=== PATIENT | female | born 1985 | race American Indian/Alaskan Native ===

== ENCOUNTER 2017-10-29 08:08 | Day surgery (SDC) | payer MEDICAID ==
[2017-10-29] MEDS ORDERED: NACL 0.9% 1000 ML 1,000 ML IV SCH (10:00)
--- NOTE | 2017-10-29 10:16 | Anesthesia Consultation ---
Anesthesia Consult and Med Hx Date of service: 10/29/17 - Airway Anesthetic Teeth Evaluation: Good ROM Head & Neck: Adequate Mental/Hyoid Distance: Adequate Mallampati Class: Class II Intubation Access Assessment: Probably Good - Pulmonary Exam CTA: Yes - Cardiac Exam Cardiac Exam: RRR - Pre-Operative Health Status ASA Pre-Surgery Classification: ASA3 Proposed Anesthetic Plan: MAC - Pulmonary Hx Asthma: Yes Hx Sleep Apnea: Yes - Central Nervous System Hx Psychiatric Problems: Yes (deression/anxiety/adhd) - Other Systems Hx Obesity: Yes
--- NOTE | 2017-10-29 10:16 | Anesthesia Day of Surgery ---
Anesthesia Day of Surgery - Day of Surgery Patient Examined: Yes Patient H&P Reviewed: Yes Patient is NPO: Yes
[2017-10-29] MEDS ORDERED: DIPRIVAN 10 MG/ML IV ONE ×2 (10:24)
[2017-10-29 14:25] VITALS: BP 138/81
--- NOTE | 2017-10-29 15:04 | Operative Report ---
SURGEONS: Chi Treviño MD and ____ PREOPERATIVE DIAGNOSES: Dyspepsia, nausea, status post lap band placement. POSTOPERATIVE DIAGNOSES: ____Malpositioned band, dyspepsia, nausea, status post lap band placement. OPERATION: Esophagogastroduodenoscopy. ANESTHESIA: MAC. COMPLICATIONS: None. SPECIMENS: None. BLEEDING: None. INDICATIONS: The patient is a 32-year-old female who had a lap band placed in 2009. She has since developed dyspepsia and persistent nausea. She had an upper GI performed elsewhere that demonstrated a slipped band on barium swallow. She presents today for a planned upper endoscopy to evaluate further. The risks, complications and alternatives were explained to the patient. Informed consent was obtained. DESCRIPTION OF PROCEDURE: The patient was brought to the operating room where she was placed in the left lateral decubitus position and underwent anesthesia. Bite block was placed. A standard adult gastroscope was inserted into the oropharynx, down the esophagus, into the stomach. On retroflexion view, the band was seen to be in proper position. There were no erosions, ulcers, or lesions noted, it was normal up to the portion of D1. The area was then desufflated. The gastroscope was removed. The patient tolerated the procedure well and was transferred back in stable condition. JOB# [id number] NATHALY/DAPHNE
== END 2017-10-29 11:18 | disposition home or self-care (01) ==
LOC: GIO 08:08
PROVIDERS: ATTEND Specialist
DX: K30 Functional dyspepsia (principal); R11.0 Nausea; F41.9 Anxiety disorder, unspecified; G47.30 Sleep apnea, unspecified; J45.909 Unspecified asthma, uncomplicated; E66.9 Obesity, unspecified; Z68.42 Body mass index [BMI] 45.0-49.9, adult; Z98.890 Other specified postprocedural states
CPT/HCPCS: 43235; 81025; J2704; J7030

== ENCOUNTER 2018-05-01 11:00 | Outpatient (CLI) | payer MEDICAID | END 2018-05-01 11:01 | disposition home or self-care (01) | LOC: SLR 11:00 | PROVIDERS: ATTEND Otolaryngology | DX: G47.33 Obstructive sleep apnea (adult) (pediatric) (principal); R40.0 Somnolence; R06.83 Snoring; J45.909 Unspecified asthma, uncomplicated; E66.9 Obesity, unspecified | CPT/HCPCS: 95810 ==

== ENCOUNTER 2018-05-14 11:00 | Outpatient (CLI) | payer MEDICAID | END 2018-05-14 11:01 | disposition home or self-care (01) | LOC: SLR 11:00 | PROVIDERS: ATTEND Otolaryngology | DX: G47.33 Obstructive sleep apnea (adult) (pediatric) (principal); R40.0 Somnolence; R06.83 Snoring; J45.909 Unspecified asthma, uncomplicated; E66.9 Obesity, unspecified | CPT/HCPCS: 95811 ==

== ENCOUNTER 2020-05-02 11:00 | Outpatient (CLI) | payer MEDICAID | END 2020-05-02 11:01 | disposition home or self-care (01) | LOC: SLR 11:00 | PROVIDERS: ATTEND Otolaryngology | DX: G47.30 Sleep apnea, unspecified (principal) | CPT/HCPCS: 95810 ==

== ENCOUNTER 2020-05-24 14:11 | Outpatient (CLI) | payer MEDICAID | END 2020-05-24 14:12 | disposition home or self-care (01) | LOC: SLR 14:11 | PROVIDERS: ATTEND Surgery | DX: G47.33 Obstructive sleep apnea (adult) (pediatric) (principal) | CPT/HCPCS: 95811 ==

== ENCOUNTER 2020-06-23 08:05 | Outpatient (CLI) | payer MEDICAID ==
--- NOTE | 2020-06-23 10:56 | Electrocardiograph Report ---
[facility] Test Date: 2020-06-23 Test Time: 09:15:43 Pat Name: BONIFACIO LLOYD Department: Room: Gender: F Dye Range Tender: PREM : 1985 Requested By: ROBIN MALDONADO Order Number: [id number] Reading MD: Lexi Ansari Measurements Intervals [place] Rate: 89 P: 44 CA: 154 QRS: 43 QRSD: 79 T: 8 QT: 363 QTc: 443 Interpretive Statements Sinus rhythm No previous ECG available for comparison Electronically Signed On 06-23-2020 10:55:47 EDT by Lexi Ansari
--- NOTE | 2020-06-24 03:01 | Treadmill Report ---
DATE OF SERVICE: 06/23/2020 DATE OF PROCEDURE: 06/23/2000 PROCEDURE: This is for a regular treadmill. Baseline heart rate was 67, sinus rhythm with frequent PVCs. Baseline blood pressure is 141/80. The patient exercised on Robert protocol for 6 minutes, achieved a heart rate of 162, which is 90% of max predicted heart rate. Peak blood pressure was 161/50. The patient had no EKG changes or arrhythmias with stress or recovery. SUMMARY: 1. Negative treadmill EKG. 2. Fair exercise capacity of 6 minutes Robert protocol. 3. There were no EKG changes or arrhythmias to suggest ischemia. 4. There was no exaggerated blood pressure response to activity. The patient achieved 7.2 METs. TID: [id number] RECEIPT: [id number] GLADYS/RODOLFO
== END 2020-06-23 08:06 | disposition home or self-care (01) ==
LOC: CARD 08:05
PROVIDERS: ATTEND Surgery
DX: Z01.818 Encounter for other preprocedural examination (principal); E66.01 Morbid (severe) obesity due to excess calories
CPT/HCPCS: 93005; 93017

== ENCOUNTER 2020-08-09 07:10 | Day surgery (SDC) | payer MEDICAID ==
[2020-08-09] MEDS ORDERED: SODIUM CHLORIDE 0.9% 1000 ML 1,000 ML IV SCH (08:00)
--- NOTE | 2020-08-09 08:38 | Anesthesia Consultation ---
Anesthesia Consult and Med Hx Date of service: 08/09/20 - Airway Anesthetic Teeth Evaluation: Good ROM Head & Neck: Adequate Mental/Hyoid Distance: Adequate Mallampati Class: Class III Intubation Access Assessment: Possibly Difficult - Pulmonary Exam CTA: Yes - Pre-Operative Health Status ASA Pre-Surgery Classification: ASA3 Proposed Anesthetic Plan: MAC - Pulmonary Hx Asthma: Yes (Last attack- 6 months ago) Hx Respiratory Symptoms: No SOB: No Hx Sleep Apnea: Yes - Cardiovascular System Hx Hypertension: No Hx Heart Attack/AMI: No Hx Angina: No - Central Nervous System Hx Seizures: No Hx Psychiatric Problems: Yes (deression/anxiety/adhd) - Gastrointestinal Hx Gastroesophageal Reflux Disease: No - Endocrine Hx Renal Disease: No Hx Liver Disease: No Hx Insulin Dependent Diabetes: No Hx Non-Insulin Dependent Diabetes: No Hx Thyroid Disease: No - Hematic Hx Sickle Cell Disease: No - Other Systems Hx Alcohol Use: Yes (Sparingly) Hx Obesity: Yes (BMI- 53.3kg)
--- NOTE | 2020-08-09 08:41 | Operative Report ---
Operative Report Operative Report: DATE: 08/09/2020 SURGERY: Upper endoscopy. SURGEON: Angel Deutsch M.D. PROCEDURE: EGD with biopsy PRE OP DX: morbid obesity, GERD, hx of gastric banding POST OP DX: morbid obesity, GERD, hx of gastric banding TYPE OF ANESTHESIA: MAC. ESTIMATED BLOOD LOSS: None. COMPLICATIONS: None. SPECIMENS REMOVED: antral biopsy FINDINGS: 1. Normal banded gastric anatomy, antral gastriti INDICATIONS:INDICATION FOR PROCEDURE: Patient is a 35-year-old female with a long history of morbid obesity. He has a hx of gastric banding and increased reflux. He is having EGD to evaluate his stomach anatomy prior to planning switching to another bariatric procedure. PROCEDURE DETAILS: After consent was reviewed, patient was taken back to the operating room where patient was placed in the left lateral decubitus position and a bite block was placed in the mouth. After a time-out was called, MAC anesthesia was initiated. I then passed the endoscope into his oropharynx, into her esophagus, visualized the entire esophagus, which was all within normal limits with the exception of mild gastritis. Z-line was noted to about 40 cm from incisors. There was an expected proximal stomach narrowing from external compression from the gastric band. I then visualized the stomach and the first portion of the duodenum and there were no abnormalities I could clearly visualize. A cold forceps biopsy of the antrum was taken and will be sent to pathology to evaluate for H.pylori. I then retroflexed the scope in the stomach and visualized the underside of the band. There were no signs of band erosion or malposition. I then desufflated the stomach and removed the endoscope. Patient tolerated procedure well and was transferred to recovery room in good and stable condition.
--- NOTE | 2020-08-09 08:43 | Anesthesia Day of Surgery ---
Anesthesia Day of Surgery - Day of Surgery Patient Examined: Yes Patient H&P Reviewed: Yes Patient is NPO: Yes Beta Blockers: No Cardiac Clearance: No Pulmonary Clearance: No George's Test: N/A
--- NOTE | 2020-08-09 08:43 | Discharge Summary ---
Providers - Providers Date of Admission: 08/09/2020 Date of discharge: 08/09/20 Attending physician: ROBIN MALDONADO MD Primary care physician: DANIELLE GONZALEZ Hospitalization Reason for admission: EGD Condition: Good Procedures: EGD with biopsy Hospital course: Pt presented for a pre-op EGD as part of planning for up coming bariatric surgery. Procedure was uneventful and pt recovered well and was discharged to home. Disposition: DC-01 TO HOME OR SELFCARE Final Discharge Diagnosis (Prints w/discharge instructions): GERD, morbid obesity, hx of gastric biopsy Core Measure Documentation - Palliative Care Palliative Care/ Comfort Measures: Not Applicable - Core Measures Any of the following diagnoses?: none Exam - Physical Exam Narrative exam: unchanged from pre-op Plan Activity: advance as tolerated Diet: low carbohydrate Follow up with: DANIELLE GONZALEZ MD [Primary Care Provider] - 7 Days
[2020-08-09] MEDS ORDERED: propofoL 200 MG/20 ML VIAL IV ONE ×2 (09:05)
[2020-08-09] MEDS ORDERED: LIDOCAINE MPF (2%) 20 MG/1 ML VIAL 5 ML ONE (09:30)
[2020-08-09 10:53] VITALS: BP 118/69
--- NOTE | 2020-08-09 19:30 | Post Anesthesia Evaluation ---
- Post Anesthesia Evaluation Patient Participated: Yes Airway Patent: Yes Stable Respiratory Function: Yes Nausea/Vomiting: No Temp > 96.8F: Yes Pain Manageable: Yes Adequeate Hydration: Yes Anesthesia Complications: No Block Receding Appropriately: Not Applicable Patient on Ventilator: No
== END 2020-08-09 07:11 | disposition home or self-care (01) ==
LOC: GIO 07:10
PROVIDERS: ATTEND Surgery
DX: K21.9 Gastro-esophageal reflux disease without esophagitis (principal); E66.01 Morbid (severe) obesity due to excess calories; K29.70 Gastritis, unspecified, without bleeding; J45.909 Unspecified asthma, uncomplicated; G47.30 Sleep apnea, unspecified; F41.9 Anxiety disorder, unspecified; F32.9 Major depressive disorder, single episode, unspecified; Z72.89 Other problems related to lifestyle; Z98.890 Other specified postprocedural states; Z79.899 Other long term (current) drug therapy; Z68.43 Body mass index [BMI] 50.0-59.9, adult
CPT/HCPCS: 43239; 88305; 88342; J2704; J7030

== ENCOUNTER 2020-08-15 08:04 | Outpatient (CLI) | payer MEDICAID ==
--- NOTE | 2020-08-15 09:21 | Fluoroscopy Report ---
BARIUM SWALLOW Indication: FUNCTIONALDYSPEPSIA. Technique: Single and double contrast barium technique utilized to evaluate the esophagus. FINDINGS: To begin the exam, swallowing was evaluated in the lateral position under direct fluorosco py. Swallowing was normal. No mucosal irregularity, mass, mass effect, or critical stenosis. There were no abnormal tertiary c ontractions as seen with dysmotility. No gastroesophageal reflux. A lap band device is identified in the left upper quadrant which appears in good position. No evidence for slippage or erosion. IMPRESSION: Unremarkable exam. Fluoroscopic time: 0.7 minutes Number of fluoroscopic images: 38 Signer Name: Nirmal Bentley Jr, MD Signed: 08/15/2020 9:17 AM Workstation Name: [id number]
== END 2020-08-15 08:05 | disposition home or self-care (01) ==
LOC: FLUORO 08:04
PROVIDERS: ATTEND Surgery
DX: K30 Functional dyspepsia (principal)
CPT/HCPCS: 74220

== ENCOUNTER 2021-03-14 15:57 | Outpatient (CLI) | payer MEDICAID ==
[2021-03-14 16:16] LABS: Basophils # (Auto) 0.1 K/mm3 (0.0-0.1); Basophils % (Auto) 1.3 % (0.0-1.8); Eosinophils # (Auto) 0.2 K/mm3 (0.0-0.4); Eosinophils % (Auto) 3.5 % (0.0-4.3); Hemoglobin 12.8 gm/dl (10.1-14.3); Lymphocytes # (Auto) 1.5 K/mm3 (1.2-5.4); Lymphocytes % (Auto) 32.8 % (13.4-35.0); Mean Corpuscular HGB Conc 32 % (30-34); Mean Corpuscular Volume 79 fl (79-97); Monocytes # (Auto) 0.3 K/mm3 (0.0-0.8); Monocytes % (Auto) 5.9 % (0.0-7.3); Platelet Count 276 K/mm3 (140-440); Red Blood Count 5.07 M/mm3 (3.65-5.03); Red Cell Distribution Width 16.2 % (13.2-15.2)
[2021-03-14 16:37] LABS: % Iron Saturation 13.32 %; Alanine Aminotransferase 29 units/L (7-56); Albumin 4.3 g/dL (3.9-5); BUN/Creatinine Ratio 12; Blood Urea Nitrogen 13 mg/dL (7-17); Calcium 9.5 mg/dL (8.4-10.2); HDL Cholesterol 51 mg/dL (40-59); Hemolysis Index 10; Iron 53 ug/dL (37-170); LDL Cholesterol,Direct 124 mg/dL (50-130); Total Iron Binding Capacity 398 mcg/dL (250-450)
== END 2021-03-14 15:58 | disposition home or self-care (01) ==
LOC: LAB 15:57
PROVIDERS: ATTEND Surgery
DX: Z01.812 Encounter for preprocedural laboratory examination (principal); Z13.21 Encounter for screening for nutritional disorder; Z13.1 Encounter for screening for diabetes mellitus; Z13.29 Encounter for screening for other suspected endocrine disorder; E55.9 Vitamin D deficiency, unspecified; E66.01 Morbid (severe) obesity due to excess calories; K30 Functional dyspepsia
CPT/HCPCS: 36415; 80053; 80061; 82306; 82607; 82728; 83036; 83550; 84443; 85025; 85730